=== PATIENT | female | born 1960 | race Caucasian/White ===

== ENCOUNTER 2017-01-07 17:24 | Emergency (ER) | payer OTHER ==
[~2017-01-07] VITALS: Ht 162.6 cm; Wt 68.0 kg
--- NOTE | 2017-01-07 18:41 | ED GI/GU/ABDOMINAL COMPLAINT ---
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 Source: patient Exam Limitations: no limitations Vital Signs & Intake/Output Vital Signs & Intake/Output Vital Signs Date Time Temp Pulse Resp B/P Pulse O2 O2 Flow FiO2 Ox Delivery Rate 01/07 1955 97.6 94 18 135/74 95 Room Air 01/07 1735 100.4 108 18 140/88 98 Room Air Allergies Coded Allergies: NO KNOWN ALLERGIES (01/30/14) Reconcile Medications Aspirin (Ecotrin*) 81 MG TABLET.DR 1 TAB PO DAILY HEART/BLOOD (Reported) Diazepam 5 MG TABLET 1 TAB PO PRN ANXIETY/MUSCLE SPASMS (Reported) Docusate Sodium (Colace) 100 MG CAPSULE 1 CAP PO QAM GI (Reported) Lisinopril/Hydrochlorothiazide (Lisinopril-Hctz 10-12.5 MG Tab) 10 MG-12.5 MG TABLET 1 TAB PO DAILY BP (Reported) Ondansetron (Ondansetron Odt) 8 MG TAB.RAPDIS 1 TAB PO Q6 PRN N/V (Reported) Oxycodone HCl 10 MG TABLET 1 TAB PO 4XDP PAIN (Reported) Polyethylene Glycol 3350 (Miralax) 17 GRAM POWD.PACK 1 PAC PO BID GI ( Reported) dissolve in water Sennosides (Senokot) 8.6 MG TABLET 1 TAB PO QAM GI (Reported) Triage Note: RECEIVED 56 YO FEMALE S/P TUMOR REMOVED 11/29 AT [place], PT C/O UNABLE TO HAVE B.M.SINCE TUESDAY. PT TOOK MAG CITRATE, MIRALAX X 2, COLACE AND PRUNES WITH NO EFFECT. PT SENT TO ED BY DR BOBBI JANSEN FOR EVALUATION. PT C/O SEVERE LOWER ABDOMINAL PAIN SINCE 3:30 PM TODAY, NOT PASSING GAS SINCE ONSET OF PAIN TODAY. Triage Nurses Notes Reviewed? yes ? N Is pt currently ? No Onset: Gradual Duration: day(s): (5) Timing: recent history Location: [facility] Activities at Onset: none HPI: 56 year old female who presents with constipation since tuesday. No relief with mg citrate and all over the counter stool softeners. 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 she has residual right leg paresthesias. (KERRIE OSPINA,LUCAS) Past History Travel History Traveled to [place] past 21 day No Medical History Any Pertinent Medical History? 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 No (LUCAS SY MD) Review of Systems Review of Systems Constitutional: Denies: chills, fever. EENTM: Reports: no symptoms. Respiratory: Reports: no symptoms. Cardiovascular: Reports: no symptoms. GI: Reports: abdominal pain, constipation, changes in stool. Denies: nausea, vomiting. Genitourinary: Denies: discharge, dysuria. Musculoskeletal: Reports: no symptoms. Skin: Reports: no symptoms. Neurological/Psychological: Reports: anxiety. Hematologic/Endocrine: Denies: bruising, bleeding, polyuria, polydipsia. Immunologic/Allergic: Reports: no symptoms. All Other Systems: Reviewed and Negative (LUCAS SY MD) Physical Exam Physical Exam General Appearance: well developed/nourished, alert, awake, comfortable, mild distress Head: atraumatic, normal appearance Eyes: Bilateral: normal appearance, PERRL, EOMI. Ears, Nose, Throat, Mouth: hearing grossly normal, moist mucous membrane Neck: normal inspection, supple, normal alignment Respiratory: normal breath sounds, chest non-tender, no respiratory distress Cardiovascular: regular rate/rhythm Peripheral Pulses: 2+ radial (R), 2+ radial (L) Gastrointestinal: normal bowel sounds, soft, non-tender Back: normal inspection, normal range of motion, vertebral tenderness Extremities: normal range of motion Core Measures ACS in differential dx? 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 01/07/2017 9:41:36 PM although Bijal has not passed a formed stool here in the emergency department, she feels much better "like a new woman". She wishes to return home. (WILLY OSPINA,FAMILIA Tapia) Departure Departure Condition: Stable Referrals: Pipe PERRY MD (PCP/Family) Departure Forms: Customer Survey General Discharge Information (KERRIE OSPINA,LUCSA) Departure Disposition: HOME OR SELF CARE Clinical Impression Primary Impression: Constipation Qualifiers: Constipation type: unspecified constipation type Qualified Code: K59.00 - Constipation, unspecified Additional Instructions: Continue MiraLAX twice daily. Increase your fluid intake and decrease the bulk in your diet temporarily. If you wish take a half a bottle of magnesium citrate. Follow-up with your primary care physician if you have not moved her bowels (a formed bowel movement) over the next 48 hours. Return immediately if any concerns or sudden worsening. Thank you for choosing the [facility] Emergency Department for your care. It was a pleasure to serve you today. Familia Vaca M.D. [facility] (WILLY OSPINA,FAMILIA Tapia)
[2017-01-07] MEDS ORDERED: ONDANSETRON ODT8 M1 PO (19:08)
[2017-01-07] MEDS ORDERED: DIAZEPAM5 M1 PO (19:08)
[2017-01-07] MEDS ORDERED: OXYCODONE HCL10 M2 PO (19:08)
[2017-01-07] MEDS ORDERED: LISINOPRIL-HCT1 EAC2 PO (19:09)
[2017-01-07] MEDS ORDERED: MIRALAX17 G1 PO (19:10)
[2017-01-07] MEDS ORDERED: COLACE100 M1 PO (19:11)
[2017-01-07] MEDS ORDERED: SENOKOT8.6 M2 PO (19:11)
[2017-01-07] MEDS ORDERED: ASPIRIN EC81 M1 PO (19:12)
[2017-01-07 22:15] VITALS: BP 132/78
== END 2017-01-07 22:16 ==
LOC: ERH 17:24
DX: K59.00 Constipation, unspecified (principal)